=== PATIENT | female | born 1970 | race Caucasian/White ===

== ENCOUNTER 2022-04-03 11:00 | Inpatient (IN) | payer SELFPAY ==
[~2022-04-03] VITALS: Ht 154.9 cm; Wt 56.0 kg
[2022-04-03] VITALS (14 sets, daily range): BP systolic 84–126; BP diastolic 48–78
[2022-04-03] MEDS ORDERED: fentaNYL PF VIAL 100 MCG/2 ML VIAL IVP PRN (17:00)
[2022-04-03] MEDS ORDERED: IV NORMAL SALINE 1000ML BAG 1,000 ML IV SCH (17:00)
[2022-04-03] MEDS ORDERED: ALPR0.25 PO (18:38)
[2022-04-03] MEDS ORDERED: TAMO20TA PO (18:38)
[2022-04-03] MEDS ORDERED: METO-239 PO (18:38)
[2022-04-03] MEDS ORDERED: LISI10TA16 PO (18:38)
[2022-04-03] MEDS ORDERED: ASPI-886 PO (18:38)
[2022-04-03] MEDS ORDERED: TRAZ-118 PO (18:38)
[2022-04-03] MEDS ORDERED: VANCOMYCIN PER PHARMACY MC PRN (18:45)
[2022-04-03] MEDS ORDERED: PIP/TAZO PER PHARMACY MC PRN (18:45)
[2022-04-03] MEDS ORDERED: ALPRAZolam 0.25 MG TABLET PO PRN (19:00)
[2022-04-03] MEDS ORDERED: PIPERACILLIN/TAZOBACTAM 3.375 GM in IV NORMAL SALINE 50ML 50 ML IV ONE (19:00)
--- NOTE | 2022-04-03 20:45 | HP ---
DATE OF SERVICE: 04/03/2022 ADMIT DATE: 04/03/2022 CHIEF COMPLAINT: Probable sepsis. HISTORY OF PRESENT ILLNESS: The patient is a pleasant 52-year-old female who had a permanent pacemaker placed 6 weeks ago. Since then, she has been doing relatively well until about 5 days ago when she began developing a lot of body aches. Her was giving her Tylenol and ibuprofen and alternating that up until today when he did take her to the primary care physician's office. The primary care physician ____ and said that she was septic and she needed to go to the ER. Indeed, she does appear septic. She is very weak and pale. She has a slight tachycardia at 102 beats per minute. She is tachypnea at 22 breaths per minute. Blood pressure is a little low at 98/59 when she was at [facility] a couple of hours ago. She was given an empiric dose of Zosyn and vancomycin and apparently the urine over there did show UTI. The patient was transferred here from [place] as they are apparently full. I plan to consult Infectious Disease and Cardiology. PAST MEDICAL HISTORY: Recent permanent pacemaker, arrhythmias, hypertension, insomnia, anxiety, breast cancer. ALLERGIES: VANCOMYCIN. FAMILY HISTORY: Diabetes. SOCIAL HISTORY: She does not drink, smoke or take drugs. 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 She is . Her works in [employer]. MEDICATIONS: Reviewed. She is on metoprolol, lisinopril, aspirin, trazodone, Xanax and tamoxifen. REVIEW OF SYSTEMS: GENERAL: She complains of weakness. SKIN: No bruising, hair changes or rashes. EYES: No blurred, double or loss of vision. NOSE AND THROAT: No history of nosebleeds, hoarseness or sore throat. HEART: No history of palpitations, chest pain or shortness of breath on exertion. LUNGS: Denies cough, hemoptysis, wheezing or shortness of breath. GASTROINTESTINAL: Denies changes in appetite, nausea, vomiting, diarrhea or constipation. GENITOURINARY: No history of frequency, urgency, hesitancy or nocturia. NEUROLOGIC: She complains of weakness. PSYCHIATRIC: She complains of anxiety. ENDOCRINE: No history of heat or cold intolerance, polyuria or polydipsia. MUSCULOSKELETAL: She complains of diffuse pain. PHYSICAL EXAMINATION: VITAL SIGNS: Temperature is 98, pulse 102, respirations 22, blood pressure 95/59, O2 sat 100% on room air. GENERAL: No apparent distress. Alert and oriented. HEENT: Normal cephalic atraumatic, external auditory canals are patent EYES: Extraocular muscles are intact, pupils are equally round and reactive to light and accommodation MUSCULOSKELETAL: Well developed, well nourished, good range of motion ENDOCRINE: No thyromegaly was palpated LYMPHATICS: No cervical chain or axillary nodes were noted HEMATOPOIETIC: No bruising NECK: Supple, no JVD, no thyromegaly was noted. LUNGS: Clear to auscultation in all lung cesar without rhonchi or wheezing. HEART: RRR, S1, S2 present. Peripheral pulses intact, no obvious murmurs were noted. ABDOMEN: Soft, nontender. Positive bowel sounds no organomegaly, normal bowel sounds. EXTREMITIES: Without any cyanosis, clubbing, or edema. Pedal pulses intact, Homans sign is negative. NEUROLOGIC: Normal speech, normal tone. A and O x3, moves all extremities, no obvious focal deficits. PSYCHIATRIC: She is a little anxious. SKIN: She is quite pale. VASCULAR: Good capillary refill, neurovascular bundle appears to be intact. LABORATORY DATA: Pending. ASSESSMENT AND PLAN: Sepsis in a middle-aged female with the above noted comorbidities who had a recent permanent pacemaker and also apparently has UTI. I have started IV antibiotics. I have consulted Infectious Disease. Consult Cardiology. Home meds. Deep venous thrombosis prophylaxis. Full code. ICU monitoring. SHAHZAD/ANTHONY/KATERINA DR: Ifeoma TID: [id number]
--- NOTE | 2022-04-03 21:21 | NUR ---
1315 Transfer from [facility] w probable sepsis. Fluids,antibiotics,central line placed+ peripheral site placed prior to transfer as well as mag and K+ supplements . NS at 75/h cont on trans to ICU room 102. Extreme generalized pain skin and joints increased w any tactile stimulation /movement. Hx recent pacer/defib placement 2 weeks ago for reported for HX CHF w reduced EF. Pacer site w extreme erythema and tenderness. Blood cultures x 2 pending form ER draw in [facility]. Admission w difficulty getting information completed in computer. Several pages for Dr Fleming with late return call. Communication continued w Dr Panchal -orders. IV pain med as ordered. Pt informed Dr Panchal on way to see. Pain med at this time allowing her to 'doze " at this time. Condition guarded
[2022-04-03] MEDS ORDERED: NOREPINEPHRINE VIAL 8 MG in IV DEXTROSE 5% 250 ML IV PRN (22:00)
[2022-04-04] MEDS ORDERED: METOPROLOL SUCC 24HR ER 25 MG TAB.ER.24H. PO SCH (09:00)
[2022-04-04] MEDS ORDERED: ASPIRIN ENTERIC COATED 81 MG TABLET.DR. PO SCH (09:00)
[2022-04-04] MEDS ORDERED: TAMOXIFEN 10 MG TABLET PO SCH (09:00)
== END 2022-04-04 | DRG 260 ==
LOC: 1 WEST ICU 11:00
PROVIDERS: ADMIT Internal Medicine; ATTEND Internal Medicine
PROC: 02PA3MZ Removal of Cardiac Lead from Heart, Percutaneous Approach (ICD-10-PCS; principal; 2022-04-04)
PROC: 0JPT0PZ Removal of Cardiac Rhythm Related Device from Trunk Subcutaneous Tissue and Fascia, Open Approach (ICD-10-PCS; 2022-04-04)
PROC: 05HB33Z Insertion of Infusion Device into Right Basilic Vein, Percutaneous Approach (ICD-10-PCS; 2022-04-04)
PROC: B54MZZA Ultrasonography of Right Upper Extremity Veins, Guidance (ICD-10-PCS; 2022-04-04)
PROC: 30233R1 Transfusion of Nonautologous Platelets into Peripheral Vein, Percutaneous Approach (ICD-10-PCS; 2022-04-04)
PROC: 4B02XTZ Measurement of Cardiac Defibrillator, External Approach (ICD-10-PCS; 2022-04-04)
DX: T82.7XXA Infection and inflammatory reaction due to other cardiac and vascular devices, implants and grafts, initial encounter (principal); A40.0 Sepsis due to streptococcus, group A; R65.21 Severe sepsis with septic shock; I50.43 Acute on chronic combined systolic (congestive) and diastolic (congestive) heart failure; N39.0 Urinary tract infection, site not specified; I42.9 Cardiomyopathy, unspecified; N17.9 Acute kidney failure, unspecified; E87.1 Hypo-osmolality and hyponatremia; M62.82 Rhabdomyolysis; I47.2 Ventricular tachycardia; Z20.822 Contact with and (suspected) exposure to COVID-19; Z83.3 Family history of diabetes mellitus; Z85.3 Personal history of malignant neoplasm of breast; F41.9 Anxiety disorder, unspecified; Z88.8 Allergy status to other drugs, medicaments and biological substances; Z90.710 Acquired absence of both cervix and uterus; Z79.899 Other long term (current) drug therapy; Z87.891 Personal history of nicotine dependence; I48.91 Unspecified atrial fibrillation; Z79.01 Long term (current) use of anticoagulants; I25.10 Atherosclerotic heart disease of native coronary artery without angina pectoris; E87.5 Hyperkalemia; D69.6 Thrombocytopenia, unspecified; T46.0X5A Adverse effect of cardiac-stimulant glycosides and drugs of similar action, initial encounter; Y92.89 Other specified places as the place of occurrence of the external cause; I11.0 Hypertensive heart disease with heart failure; I48.0 Paroxysmal atrial fibrillation; D64.9 Anemia, unspecified; E88.09 Other disorders of plasma-protein metabolism, not elsewhere classified; E87.6 Hypokalemia
CPT/HCPCS: 80053; 81001; 83735; J2020; J2543; J3010; J7030; G0378